=== PATIENT | female | born 1940 | race African-American/Black ===

== ENCOUNTER 2021-10-04 09:19 | Emergency (ER) | payer BC, MEDICARE ==
[~2021-10-04] VITALS: Ht 167.6 cm; Wt 91.0 kg
[~2021-10-04 09:19] MED LIST: ASPI-1497 PO; CARVEDILOL PO; CLAR10 PO; CYCL5TAB10 PO; Docusate Sodium PO; LEVO500T2 PO; LOSA50TA41 PO; LOVA40TA73 PO; MONT5TAB13 PO; PHEN15SP BOTHNSTRLS; PSEU30TA34 PO; TRIA1CAP35 PO; UBID200C35 PO; [UNRECOGNIZED DRUG - CODE] PO
[2021-10-04] MEDS ORDERED: ONDANSETRON HCL 4MG/2ML INJ IV STA (09:51)
[2021-10-04] MEDS ORDERED: MORPHINE SULFATE 4 MG/ML CPJ (NOT FOR IM USE) IV STA (09:51)
[2021-10-04 11:08] LABS: BASOPHILS % 0.3 % (0.0-2.0); EOSINOPHILS % 0.5 % (0.0-5.0); HEMOGLOBIN. 10.8 g/dL (12.0-16.0); LYMPHOCYTES % 13.7 % (20.0-50.0); MEAN CORPUSCULAR HEMOGLOBIN 27.2 pg (28.0-32.0); MEAN PLATELET VOLUME 8.9 fl (7.4-10.4); NEUTROPHILS % 76.5 % (40.0-76.0); PLATELET 262 x1000/uL (130-400); RED BLOOD CELL COUNT 3.98 mill/uL (4.2-5.4); RED CELL DISTRIBUTION WIDTH 17.7 % (11.6-14.6)
[2021-10-04 11:30] LABS: CHLORIDE 108 mEq/L (98-107)
[2021-10-04 13:17] LABS: CLARITY URINE CLEAR (CLEAR); COLOR URINE YELLOW (YELLOW); KETONES URINE NEGATIVE (NEGATIVE); LEUKOCYTE ESTERASE URINE NEGATIVE (NEGATIVE); NITRITE URINE NEGATIVE (NEGATIVE); OCCULT BLOOD URINE NEGATIVE (NEGATIVE); PROTEIN URINE NEGATIVE (NEGATIVE); SPECIFIC GRAVITY URINE 1.014 (1.005-1.030); UROBILINOGEN URINE 0.2 E.U./dL (0.2-1.0)
[2021-10-04] MEDS ORDERED: CYCL10TA21 MT (13:24)
[2021-10-04] MEDS ORDERED: IBUP-2028 MT (13:24)
[2021-10-04 13:59] VITALS: BP 141/72
== END 2021-10-04 14:00 | disposition home or self-care (01) ==
LOC: ER 09:42
DX: S39.011A Strain of muscle, fascia and tendon of abdomen, initial encounter (principal); X58.XXXA Exposure to other specified factors, initial encounter; Y93.89 Activity, other specified; Y92.89 Other specified places as the place of occurrence of the external cause; Y99.8 Other external cause status; E78.00 Pure hypercholesterolemia, unspecified; I10 Essential (primary) hypertension; Z87.01 Personal history of pneumonia (recurrent); Z90.710 Acquired absence of both cervix and uterus; Z90.49 Acquired absence of other specified parts of digestive tract; Z79.899 Other long term (current) drug therapy
CPT/HCPCS: 36415; 73502; 74176; 80053; 81003; 85025; 96374; 96375; 99285; J2270; J2405